=== PATIENT | female | born 1940 | race Two or more races ===

== ENCOUNTER 2019-07-24 12:58 | Emergency (ER) | payer MEDICARE, OTHER ==
[~2019-07-24] VITALS: Ht 162.6 cm; Wt 81.6 kg
[2019-07-24] MEDS ORDERED: ONDANSETRON HCL 4 MG/2 ML VIAL IV ONE (13:45)
[2019-07-24 13:48] VITALS: BP 126/72
[2019-07-24 14:35] LABS: Basophils # (auto) 0 uL; Basophils % (auto) 0.8 % (0.0-2.0); Eosinophils # (auto) 0.2 uL; Hemoglobin 9.9 g/dL (12.2-16.2); Lymphocytes # (auto) 2.4 uL; Mean Corpuscular Hemoglobin 19.6 pg (28.0-32.0); Monocytes # (auto) 0.3 uL; Neutrophils % (auto) 50.6 % (37.0-80.0); Nucleated Red Blood Cells % 0.1 %; Red Blood Cells 5.03 10^6/uL (4.0-5.20)
[2019-07-24 14:38] LABS: Eosinophils % (auto) 3.9 % (0.0-7.0); Hematocrit 31.3 % (36.0-46.0); Mean Corpuscular Hgb Conc. 31.5 g/dL (32.0-36.0); Mean Corpuscular Volume 62.3 fL (80.0-100.0); Monocytes % (auto) 5.7 % (0.0-12.0); Platelet Count (auto) 200 10^3/uL (140-450); Red Cell Distribution Width 16.5 % (11.8-14.3)
[2019-07-24 14:51] LABS: Albumin 3.4 g/dL (3.4-5.0); INR 1.03 (0.9-1.15); Partial Thromboplastin Time 22.9 sec (23.64-32.05)
[2019-07-24 14:53] LABS: BUN/Creatinine Ratio 27.9
[2019-07-24 14:56] LABS: Bilirubin, Total 0.8 mg/dL (0.2-1.0)
== END 2019-07-24 15:39 | disposition left against medical advice (07) ==
LOC: ER 12:58 → EDSEX 12:58 → ER 15:39
DX: N93.9 Abnormal uterine and vaginal bleeding, unspecified (principal); D50.0 Iron deficiency anemia secondary to blood loss (chronic); E11.9 Type 2 diabetes mellitus without complications; E78.5 Hyperlipidemia, unspecified
CPT/HCPCS: 36415; 80053; 85025; 85610; 85730